=== PATIENT | female | born 1950 | race Caucasian/White ===

== ENCOUNTER 2022-05-22 14:44 | Outpatient (CLI) | payer MEDICARE, BC, SELFPAY | END 2022-05-22 14:45 | disposition home or self-care (01) | PROVIDERS: PCP Family Medicine; Visit Provider Family Medicine | DX: M17.12 Unilateral primary osteoarthritis, left knee (principal); M25.562 Pain in left knee | CPT/HCPCS: 64454 ==

== ENCOUNTER 2022-06-21 09:21 | Outpatient (CLI) | payer MEDICARE, BC, SELFPAY ==
[2022-06-21 14:44] LABS: SARS PCR* Negative SARS-CoV-2 (Negative)
== END 2022-06-21 09:22 | disposition home or self-care (01) ==
LOC: FBOREF 09:23
PROVIDERS: PCP Family Medicine; Visit Provider Family Medicine
DX: Z11.52 Encounter for screening for COVID-19 (principal)
CPT/HCPCS: 87635

== ENCOUNTER 2022-06-26 13:22 | Outpatient (CLI) | payer MEDICARE, BC, SELFPAY | END 2022-06-26 13:23 | disposition home or self-care (01) | LOC: INJ CL 13:24 | PROVIDERS: PCP Family Medicine; Visit Provider Family Medicine | DX: G89.29 Other chronic pain (principal); M25.562 Pain in left knee; M17.12 Unilateral primary osteoarthritis, left knee | CPT/HCPCS: 64624; J2250; J3010 ==